=== PATIENT | female | born 1990 | race Hispanic/Latino ===

== ENCOUNTER 2021-07-27 04:33 | Emergency (ER) | payer SELFPAY ==
[~2021-07-27] VITALS: Ht 167.6 cm; Wt 72.1 kg
[2021-07-27] MEDS ORDERED: SODIUM CHLORIDE 0.9% 1000ML 1,000 ML IV STA (04:52)
[2021-07-27] MEDS ORDERED: FAMOTIDINE 20 MG/2 ML VIAL IV ONE ×2 (05:00→05:21)
[2021-07-27] MEDS ORDERED: ONDANSETRON HCL INJ 2MG/ML 2ML 2 MG/ML VIAL IV ONE (05:00)
[2021-07-27] MEDS ORDERED: ONDANSETRON ODT4 MG PO (05:08)
[2021-07-27] MEDS ORDERED: SODIUM CHLORIDE 0.9% 1000ML 1,000 ML ONE (05:21)
[2021-07-27] MEDS ORDERED: ONDANSETRON HCL INJ 2MG/ML 2ML 2 MG/ML VIAL ONE (05:21)
[2021-07-27 06:25] VITALS: BP 123/83
== END 2021-07-27 06:25 | disposition home or self-care (01) ==
LOC: FSED 05:05
DX: O20.0 Threatened abortion (principal); O21.9 Vomiting of pregnancy, unspecified
CPT/HCPCS: 76817; 80053; 85025; 96374; 96376; 99283; J2405; J7030